=== PATIENT | female | born 1955 | race Caucasian/White ===

== ENCOUNTER → 2018-08-22 | Outpatient (REF) | payer MEDICARE, OTHER ==
[2018-08-24 14:13] LABS: HPV HYBRID CAPTURE II Negative (Negative)
== END ==
LOC: M SFHCWAGY 10:43
DX: Z12.4 Encounter for screening for malignant neoplasm of cervix (principal)

== ENCOUNTER → 2018-08-22 | Outpatient (CLI) | payer MEDICARE, BC | LOC: M WHC 10:32 | DX: Z12.31 Encounter for screening mammogram for malignant neoplasm of breast (principal); Z78.0 Asymptomatic menopausal state; R92.1 Mammographic calcification found on diagnostic imaging of breast; Z92.89 Personal history of other medical treatment; Z80.3 Family history of malignant neoplasm of breast; Z80.41 Family history of malignant neoplasm of ovary; Z12.4 Encounter for screening for malignant neoplasm of cervix | CPT/HCPCS: G0123 ==

== ENCOUNTER 2019-02-27 11:33 | Day surgery (SDC) | payer MEDICARE, BC, OTHER ==
[~2019-02-27] VITALS: Ht 165.1 cm; Wt 63.0 kg
[~2019-02-27 11:33] MED LIST: NS 1,000 ML IV SCH; RABE1TAB; REGL10TA6 PO; TOPI100T9
[2019-02-27] MEDS ORDERED: LIDOCAINE 2% INJ 100 MG/5 ML SDV (FOR ANES.) As Ordered ONE (11:52)
[2019-02-27] MEDS ORDERED: PROPOFOL 200 MG/20 ML VIAL As Ordered ONE (12:56)
--- NOTE | 2019-02-27 13:24 | ROOR ---
Patient Name: Prudence Horton Procedure Date: 02/27/2019 12:53 PM Date of : 1955 Age: 64 Room: [facility] Gender: Female Note Status: Finalized Procedure: Colonoscopy Indications: Screening for colorectal malignant neoplasm Providers: Kory Luther Jr, MD Referring MD: CHRIS HERNÁNDEZ Requesting Provider: Medicines: Propofol per Anesthesia Complications: No immediate complications. Procedure: Pre-Anesthesia Assessment: - Prior to the procedure, a History and Physical was performed, and patient medications and allergies were reviewed. The patient is competent. The risks and benefits of the procedure and the sedation options and risks were discussed with the patient. All questions were answered and informed consent was obtained. Patient identification and proposed procedure were verified by the physician and the nurse in the pre-procedure area and in the procedure room. Mental Status Examination: alert and oriented. Airway Examination: normal oropharyngeal airway and neck mobility. Respiratory Examination: clear to auscultation. CV Examination: normal. ASA Grade Assessment: II - A patient with mild systemic disease. After reviewing the risks and benefits, the patient was deemed in satisfactory condition to undergo the procedure. The anesthesia plan was to use moderate sedation / analgesia (conscious sedation). Immediately prior to administration of medications, the patient was re-assessed for adequacy to receive sedatives. The heart rate, respiratory rate, oxygen saturations, blood pressure, adequacy of pulmonary ventilation, and response to care were monitored throughout the procedure. The physical status of the patient was re-assessed after the procedure. The Colonoscope was introduced through the anus and advanced to the cecum, identified by appendiceal orifice and ileocecal valve. The colonoscopy was performed without difficulty. The patient tolerated the procedure well. Findings: The rectum, sigmoid colon, descending colon, transverse colon, ascending colon, cecum, appendiceal orifice and ileocecal valve appeared normal. The sigmoid colon, descending colon, transverse colon and ascending colon were moderately redundant. Impression: - The rectum, sigmoid colon, descending colon, transverse colon, ascending colon, cecum, appendiceal orifice and ileocecal valve are normal. - Redundant colon. - No specimens collected. Recommendation: - Discharge patient to home (ambulatory). - Repeat colonoscopy in 10 years for screening purposes. Kory Luther MD Kory Luther Jr, MD 02/27/2019 1:24:01 PM Electronically signed by Kory Luther Jr, MD Number of Addenda: 0 Note Initiated On: 02/27/2019 12:53 PM Estimated Blood Loss: Estimated blood loss: none.
[2019-02-27] MEDS ORDERED: ePHEDrine SULFATE 25 MG/5 ML(5MG/ML) SYRINGE As Ordered ONE (13:29)
[2019-02-27 13:45] VITALS: BP 114/56
== END 2019-02-27 14:04 | disposition home or self-care (01) ==
LOC: M OPP 11:33
PROVIDERS: ATTEND Surgery
DX: Z12.11 Encounter for screening for malignant neoplasm of colon (principal); Q43.8 Other specified congenital malformations of intestine

== ENCOUNTER → 2019-09-26 | Outpatient (CLI) | payer MEDICARE, BC ==
[~2019-09-26] MED LIST changes: -NS 1,000 ML IV SCH
--- NOTE | 2019-09-26 09:50 | REPMRS ---
Patient History The patient states she has not had a clinical breast exam in over a year. Family history of breast cancer at age 55 in sister, ovarian cancer at age 61 in sister. Benign cyst aspiration of the right breast, 1997. No Hormone Replacement Therapy Digital Woman Screen Mammo: September 26, 2019 - Exam #: [id number] Bilateral CC and MLO view(s) were taken. Technologist: Rosette Chacon, Technologist Prior study comparison: August 22, 2018, bilateral digital woman screen mammo performed at [facility]. August 13, 2015, digital woman screen mammo performed at [facility]. July 28, 2013, digital woman screen mammo performed at [facility]. FINDINGS: The breast tissue is extremely dense which could obscure a lesion on mammography. There is an extremely dense symmetrical pattern of residual fibroglandular tissue. There has been no change in the appearance of the mammogram from the previous studies. There is no interval development of dominant mass, archetectural distortion, or grouped microcalcifications suggestive of malignancy. 3-D tomosynthesis shows no additional findings. Assessment: BI-RADS/ACR category 1 mammogram. Negative Mammogram. Recommendation Routine screening mammogram of both breasts in 1 year (for women over age 40). This patient's Lifetime Breast Cancer RIsk is estimated at 17.6 %. This mammogram was interpreted with the aid of an FDA-approved computer-aided dectection system. Electronically Signed By: Rg Zuleta MD 09/26/19 0922
== END ==
LOC: M WHC 09:07
PROVIDERS: ATTEND Nurse Practitioner Women's Health
DX: Z12.31 Encounter for screening mammogram for malignant neoplasm of breast (principal); Z85.3 Personal history of malignant neoplasm of breast; Z80.41 Family history of malignant neoplasm of ovary

== ENCOUNTER → 2020-09-15 | Outpatient (REF) | payer MEDICARE, OTHER | LOC: M LAB REF 15:16 | PROVIDERS: ATTEND Physician Assistant | DX: Z20.828 Contact with and (suspected) exposure to other viral communicable diseases (principal) ==

== ENCOUNTER → 2021-01-17 | Outpatient (CLI) | payer MEDICARE, BC ==
[~2021-01-17] MED LIST changes: -RABE1TAB; +RABE1TAB4
--- NOTE | 2021-01-17 11:48 | REPMRS ---
Patient History The patient states she has not had a clinical breast exam in over a year. Family history of breast cancer at age 55 in sister, ovarian cancer at age 61 in sister. Benign cyst aspiration of the right breast, 1997. No Hormone Replacement Therapy Patient states no breast complaints. Patient has signed the MRS history sheet. Digital Woman Screen Mammo: January 17, 2021 - Exam #: [id number] Bilateral CC and MLO view(s) were taken. Technologist: Ruth Fernández, Technologist Prior study comparison: September 26, 2019, bilateral digital woman screen mammo performed at [facility]. August 22, 2018, bilateral digital woman screen mammo performed at [facility]. FINDINGS: The breast tissue is heterogeneously dense. This may lower the sensitivity of mammography. Screening. Digital screening (2D) mammography was performed bilaterally in the CC and MLO projections. Additionally, breast tomosynthesis (3D mammography) was performed bilaterally in the CC and MLO projections. Todays exam was compared to the prior exams(s). By history, the patient has no complaints of a palpable breast abnormality or other significant breast complaints. The breasts are unchanged in size and shape. Once again, dense heterogenous fibroglandular elements are seen bilaterally in a stable appearing pattern but to such a degree that the sensitivity of the mammogram in detecting cancer is decreased.There are no zakia-soft tissue densities or spiculated masses. There is no internal architectural distortion. Once again, stable benign appearing calcifications are seen.There are no suspicious zakia-calcific clusters. Skin thickening or nipple retraction is not present. IMPRESSION: BI-RADS Category 2- Benign Findings(s). There is no evidence of malignant alteration of the breasts. Followup examination recommended in one year. The Volpara volumetric breast density category is C, the breasts are heterogenously dense which may obscure small masses. This mammogram was read with the assistance of [employer],an FDA approved computer aided detection system for mammography. The lifetime Tyrer-Cuzick score is 16.6 % Negative x-ray reports should not delay surgical consultation if a dominant or clinically suspicious mass is present. Not all breast cancers can be identified by mammography. Therefore, we recommend that you continue to perform regular breast self-examination and physical examination and then promptly contact your physician of any concerns or changes. Adenosis and dense breasts may obscure an underlying neoplasm. Assessment: BI-RADS/ACR category 2 mammogram. Benign Findings. Recommendation Routine screening mammogram of both breasts in 1 year. Electronically Signed By: Ryan Hernandez DO 01/17/21 1142
== END ==
LOC: M WHC 11:02
PROVIDERS: ATTEND Nurse Practitioner Women's Health
DX: Z12.31 Encounter for screening mammogram for malignant neoplasm of breast (principal); Z80.3 Family history of malignant neoplasm of breast

== ENCOUNTER → 2021-02-22 | Outpatient (CLI) | payer MEDICARE, BC ==
--- NOTE | 2021-02-22 12:06 | REP ---
INDICATION: PAIN COMPARISON: None. TECHNIQUE: AP, lateral, and swimmers views. FINDINGS: Alignment and kyphosis is maintained. Vertebral bodies intact. No acute fracture / compression injury or subluxation. Mild age-related changes include subtle marginal spurring and minimal endplate sclerosis. IMPRESSION: Minimal age-related changes. <Electronically signed by Enzo Barnes > 02/22/21 [id number]
== END ==
LOC: M WUC 11:22
PROVIDERS: ATTEND Physician Assistant
DX: M54.6 Pain in thoracic spine (principal)

== ENCOUNTER → 2022-11-08 | Outpatient (REF) | payer MEDICARE, OTHER | LOC: M PLALAB 14:59 | PROVIDERS: ATTEND Advanced Practice Midwife | DX: Z12.4 Encounter for screening for malignant neoplasm of cervix (principal); N95.2 Postmenopausal atrophic vaginitis | CPT/HCPCS: 87624; G0123 ==

== ENCOUNTER → 2022-11-08 | Outpatient (CLI) | payer MEDICARE, BC, OTHER | LOC: M WHC 13:17 | PROVIDERS: ATTEND Advanced Practice Midwife | DX: Z12.31 Encounter for screening mammogram for malignant neoplasm of breast (principal); Z80.3 Family history of malignant neoplasm of breast; Z80.41 Family history of malignant neoplasm of ovary ==

== ENCOUNTER 2023-12-15 19:34 | Inpatient (IN) | payer MEDICARE, BC ==
[~2023-12-15] VITALS: Ht 165.1 cm; Wt 68.0 kg
[2023-12-15] MEDS ORDERED: METO10TA3 PO (20:26)
[2023-12-15] MEDS ORDERED: FAMO40TA3 PO (20:26)
[2023-12-15] MEDS ORDERED: PANT40TA29 PO (20:26)
[2023-12-15] MEDS ORDERED: BENZ200C70 PO (20:26)
[2023-12-15 21:29] LABS: HEMATOCRIT 30.1 % (36.0-47.0); HEMOGLOBIN 10.2 g/dl (12.0-15.5); MEAN CORPUSCULAR HEMOGLOBIN 29.5 pg (27.0-33.0); MEAN CORPUSCULAR HGB CONC 33.9 g/dl (32.0-36.5); RED BLOOD COUNT 3.46 10^6/uL (4.00-5.40); WHITE BLOOD COUNT 6.7 10^3/uL (4.0-10.0)
[2023-12-15] MEDS: ACETAMINOPHEN 500 MG TAB PO ONE (21:31)
[2023-12-15] MEDS: NS 2,060 ML in IV 1 EA IV ONE (21:31)
[2023-12-15 21:46] LABS: ERYTHROCYTE SEDIMENTATION RATE 23 mm/hr (0-30)
[2023-12-15 22:03] LABS: PLATELET COUNT, AUTOMATED 89 10^3/uL (150-450)
[2023-12-15 22:26] LABS: ATYPICAL LYMPH 9 % (0-5); LYMPHOCYTES 30 % (16-44); MONOCYTES 2 % (0-5); NEUTROPHILS 59 % (28-66); PLATELET ESTIMATE DECREASED (NORMAL)
[2023-12-15 22:35] LABS: LIPASE 39 U/L (12-53)
[2023-12-15 22:37] LABS: CPK CREATINE PHOSPHOKINASE 264 U/L (34-145)
[2023-12-15 22:46] LABS: ALBUMIN 2.9 G/DL (3.2-5.2); ALKALINE PHOSPHATASE 414 U/L (46-116); ALT/SGPT 279 U/L (7.0-40); AST/SGOT 262 U/L (<34); BILIRUBIN,DIRECT 0.7 MG/DL (<0.4); BILIRUBIN,TOTAL 1.1 MG/DL (0.3-1.2); BLOOD UREA NITROGEN 16 MG/DL (9-23); CALCIUM LEVEL 8.1 MG/DL (8.3-10.6); CARBON DIOXIDE LEVEL 28 MMOL/L (20-31); CHLORIDE LEVEL 102 MMOL/L (98-107); CK-MB VALUE MASS < 1.0 NG/ML (<3.6); CREATININE FOR GFR 0.65 MG/DL (0.55-1.30); GLOMERULAR FILTRATION RATE > 60.0 (>39); GLUCOSE, FASTING 130 MG/DL (74-106); MB/CK RELATIVE INDEX 0.37 (< OR =4); SODIUM LEVEL 135 MMOL/L (136-145); TOTAL PROTEIN 5.7 G/DL (5.7-8.2)
[2023-12-15] MEDS: ALBUTEROL SULFATE 2.5MG/0.5ML INH NEB SOLN NEB ONE (22:55)
[2023-12-15] MEDS: POTASSIUM CHLORIDE 10% LIQ 20MEQ/15ML UDC PO ONE (23:01)
[2023-12-15 23:22] LABS: MONO REFLEX EBV COMP NEGATIVE (NEGATIVE)
[2023-12-15 23:31] LABS: CK-MB VALUE MASS < 1.0 NG/ML (<3.6)
[2023-12-15] MEDS ORDERED: ISOVUE-370 76% 100ML VIAL As Ordered ONE (23:59)
[2023-12-16 00:03] LABS: CPK CREATINE PHOSPHOKINASE 251 U/L (34-145); MB/CK RELATIVE INDEX 0.39 (< OR =4)
[2023-12-16] MEDS: CEFEPIME HCL 2 GM in D5W MINI-BAG PLUS 50 ML IV ONE (01:54)
[2023-12-16 02:09] LABS: HEPATITIS C VIRUS ABY INDEX < 0.02 INDEX (<0.8)
[2023-12-16 02:10] LABS: HEPATITIS B CORE ANTIBODY IGM NEGATIVE (NEGATIVE)
[2023-12-16] MEDS ORDERED: THERTAB52 PO (03:21)
[2023-12-16] MEDS ORDERED: VITA100093 PO (03:21)
[2023-12-16] MEDS ORDERED: EQL50TAB2 PO (03:21)
[2023-12-16] MEDS ORDERED: HOME MED LIST COMPLETE! XX SCH (03:25)
[2023-12-16] MEDS: DOXYCYCLINE HYCLATE 100 MG in D5W MINI-BAG PLUS 100 ML IV SCH (04:05)
[2023-12-16 05:04] VITALS: BP 117/58; TEMP 97.9; O2SAT 94
[2023-12-16 06:33] LABS: HEMATOCRIT 29.3 % (36.0-47.0); HEMOGLOBIN 9.7 g/dl (12.0-15.5); MEAN CORPUSCULAR HEMOGLOBIN 29.5 pg (27.0-33.0); MEAN CORPUSCULAR HGB CONC 33.1 g/dl (32.0-36.5); MEAN CORPUSCULAR VOLUME 89.1 fl (80.0-96.0); PLATELET COUNT, AUTOMATED 101 10^3/uL (150-450); RED BLOOD COUNT 3.29 10^6/uL (4.00-5.40); WHITE BLOOD COUNT 6.5 10^3/uL (4.0-10.0)
[2023-12-16 06:55] LABS: ATYPICAL LYMPH 5 % (0-5); LYMPHOCYTES 42 % (16-44); MONOCYTES 2 % (0-5); NEUTROPHILS 47 % (28-66)
[2023-12-16 07:02] LABS: PLATELET ESTIMATE DECREASED (NORMAL)
[2023-12-16 07:03] LABS: ALBUMIN 2.5 G/DL (3.2-5.2); ALKALINE PHOSPHATASE 374 U/L (46-116); ALT/SGPT 269 U/L (7.0-40); AST/SGOT 235 U/L (<34); BILIRUBIN,TOTAL 0.9 MG/DL (0.3-1.2); BLOOD UREA NITROGEN 12 MG/DL (9-23); CALCIUM LEVEL 7.6 MG/DL (8.3-10.6); CARBON DIOXIDE LEVEL 27 MMOL/L (20-31); CHLORIDE LEVEL 111 MMOL/L (98-107); CREATININE FOR GFR 0.69 MG/DL (0.55-1.30); GLOMERULAR FILTRATION RATE > 60.0 (>39); GLUCOSE, FASTING 111 MG/DL (74-106); PLATELET CLUMPS SMALL AMT; POTASSIUM SERUM 3.2 MMOL/L (3.5-5.1); SODIUM LEVEL 142 MMOL/L (136-145); TOTAL PROTEIN 5.2 G/DL (5.7-8.2)
[2023-12-16] MEDS ORDERED: BENZONATATE 100MG CAPSULE PO PRN (09:25)
[2023-12-16] MEDS: POTASSIUM CHLORIDE 10MEQ SR TABLET PO ONE (09:43)
[2023-12-16 09:52] LABS: FREE T4 0.98 NG/DL (0.89-1.76); THYROID STIMULATING HORMONE 0.412 uIU/ML (0.55-4.78)
[2023-12-16 10:31] VITALS: BP 118/64; TEMP 99.5; O2SAT 92
[2023-12-16 14:22] VITALS: BP 104/58; TEMP 98.4; O2SAT 93
[2023-12-16] MEDS: AZITHROMYCIN 250MG TABLET PO SCH (14:34)
[2023-12-16] MEDS: ATOVAQUONE SUSP 750MG/5ML 210 ML BTL PO SCH (14:35)
[2023-12-16 18:08] VITALS: BP 104/59; TEMP 97.9; O2SAT 94
[2023-12-16] MEDS: FAMOTIDINE 20 MG TAB PO SCH (20:37)
[2023-12-16] MEDS: ACETAMINOPHEN TAB 650MG DOSE (2X325MG) PO PRN (20:38)
[2023-12-16 21:52] VITALS: BP 103/57; TEMP 98.1; O2SAT 92
[2023-12-17 01:48] VITALS: BP 104/58; TEMP 97.9; O2SAT 93
[2023-12-17 05:44] VITALS: BP 116/70; TEMP 97.7; O2SAT 92
[2023-12-17 07:47] LABS: BASO % 0.3 % (0.0-1.0); EOS # 0.1 10^3/uL (0.0-0.5); EOS % 0.7 % (0.0-3.0); HEMATOCRIT 28.3 % (36.0-47.0); HEMOGLOBIN 9.2 g/dl (12.0-15.5); LYMPH # 3.4 10^3/uL (1.5-5.0); LYMPH % 36.7 % (24.0-44.0); MEAN CORPUSCULAR HEMOGLOBIN 29.1 pg (27.0-33.0); MEAN CORPUSCULAR HGB CONC 32.5 g/dl (32.0-36.5); MEAN CORPUSCULAR VOLUME 89.6 fl (80.0-96.0); MONO # 0.6 10^3/uL (0.0-0.8); NEUTROPHILS % 54.8 % (36.0-66.0); PLATELET COUNT, AUTOMATED 169 10^3/uL (150-450); RED BLOOD COUNT 3.16 10^6/uL (4.00-5.40); WHITE BLOOD COUNT 9.1 10^3/uL (4.0-10.0)
[2023-12-17 08:17] LABS: BLOOD UREA NITROGEN 15 MG/DL (9-23); CALCIUM LEVEL 7.8 MG/DL (8.3-10.6); CARBON DIOXIDE LEVEL 26 MMOL/L (20-31); CHLORIDE LEVEL 108 MMOL/L (98-107); CREATININE FOR GFR 0.62 MG/DL (0.55-1.30); GLOMERULAR FILTRATION RATE > 60.0 (>39); GLUCOSE, FASTING 79 MG/DL (74-106); POTASSIUM SERUM 3.4 MMOL/L (3.5-5.1); SODIUM LEVEL 141 MMOL/L (136-145)
[2023-12-17 08:18] LABS: ALBUMIN 2.3 G/DL (3.2-5.2); BILIRUBIN,DIRECT 0.5 MG/DL (<0.4); BILIRUBIN,TOTAL 0.9 MG/DL (0.3-1.2); TOTAL PROTEIN 5.2 G/DL (5.7-8.2)
[2023-12-17] MEDS: PANTOPRAZOLE 40MG TAB (PROTONIX) PO SCH (08:58)
[2023-12-17 14:00] VITALS: BP 115/61; TEMP 97.7; O2SAT 94
[2023-12-17] MEDS: DOXYCYCLINE HYCLATE 100MG TABLET PO SCH (17:02)
[2023-12-17 21:45] VITALS: BP 117/63; TEMP 97.7; O2SAT 91
[2023-12-18 01:54] VITALS: BP 127/71; TEMP 97.7; O2SAT 90
[2023-12-18 05:28] VITALS: BP 125/68; TEMP 97.9; O2SAT 92
[2023-12-18 07:33] LABS: BASO % 0.3 % (0.0-1.0); EOS # 0.2 10^3/uL (0.0-0.5); EOS % 2.5 % (0.0-3.0); HEMATOCRIT 27.8 % (36.0-47.0); HEMOGLOBIN 9.5 g/dl (12.0-15.5); LYMPH # 3.7 10^3/uL (1.5-5.0); LYMPH % 50.8 % (24.0-44.0); MEAN CORPUSCULAR HEMOGLOBIN 30.1 pg (27.0-33.0); MEAN CORPUSCULAR HGB CONC 34.2 g/dl (32.0-36.5); MONO # 0.7 10^3/uL (0.0-0.8); MONO % 8.9 % (2.0-8.0); NEUTROPHILS # 2.7 10^3/uL (1.5-8.5); NEUTROPHILS % 36.5 % (36.0-66.0); PLATELET COUNT, AUTOMATED 265 10^3/uL (150-450); RED BLOOD COUNT 3.16 10^6/uL (4.00-5.40); WHITE BLOOD COUNT 7.3 10^3/uL (4.0-10.0)
[2023-12-18 07:55] LABS: BLOOD UREA NITROGEN 11 MG/DL (9-23); CALCIUM LEVEL 7.8 MG/DL (8.3-10.6); CARBON DIOXIDE LEVEL 28 MMOL/L (20-31); CHLORIDE LEVEL 106 MMOL/L (98-107); CREATININE FOR GFR 0.54 MG/DL (0.55-1.30); GLOMERULAR FILTRATION RATE > 60.0 (>39); GLUCOSE, FASTING 95 MG/DL (74-106); POTASSIUM SERUM 3.3 MMOL/L (3.5-5.1); SODIUM LEVEL 141 MMOL/L (136-145)
[2023-12-18] MEDS ORDERED: DOXY100C3 PO (08:20)
[2023-12-18] MEDS ORDERED: POTA-151 PO (08:20)
[2023-12-18 09:00] VITALS: BP 124/69; TEMP 97.7; O2SAT 92
[2023-12-18] MEDS: POTASSIUM CHLORIDE 10MEQ SR TABLET PO ONE (11:10)
[2023-12-18 12:00] VITALS: BP 124/69; TEMP 97.3; O2SAT 94
[2023-12-18 14:09] LABS: EBV AB TO NUCLEAR ANTIGEN 23.1 U/mL (0.0-17.9); EBV VIRAL CAPSID AG IgM <36.0 U/mL (0.0-35.9)
[2023-12-20 09:08] LABS: CMV QUANT DNA PCR (PLASMA) Negative (Negative); EBV PCR QUAL WHOLE BLD Negative (Negative)
== END 2023-12-18 14:45 | disposition home or self-care (01) | DRG 866 ==
LOC: M ED 19:34 → M ED INP 12-16 02:38 → ENRESERVTM 12-16 04:24 → ENRESERVDT 12-16 04:24 → M MS5PR 12-16 05:03
PROVIDERS: ADMIT Internal Medicine; ATTEND Internal Medicine
DX: A93.8 Other specified arthropod-borne viral fevers (principal); D64.9 Anemia, unspecified; K21.9 Gastro-esophageal reflux disease without esophagitis; D69.6 Thrombocytopenia, unspecified; Z79.899 Other long term (current) drug therapy; E87.6 Hypokalemia; R91.8 Other nonspecific abnormal finding of lung field; E04.1 Nontoxic single thyroid nodule

== ENCOUNTER → 2023-12-19 | Outpatient (CLI) | payer MEDICARE, BC ==
[~2023-12-19] MED LIST changes: +BENZ200C70 PO; +DOXY100C3 PO; +EQL50TAB2 PO; +FAMO40TA3 PO; +METO10TA3 PO; +PANT40TA29 PO; +POTA-151 PO; +THERTAB52 PO; +VITA100093 PO
== END ==
LOC: M WHC 10:27
PROVIDERS: ATTEND Advanced Practice Midwife
DX: Z12.31 Encounter for screening mammogram for malignant neoplasm of breast (principal); R92.333 Mammographic heterogeneous density, bilateral breasts

== ENCOUNTER → 2024-02-04 | Outpatient (REF) | payer MEDICARE, BC | LOC: M LAB REF 15:14 | PROVIDERS: ATTEND Internal Medicine Endocrinology, Diabetes & Metabolism | DX: E04.2 Nontoxic multinodular goiter (principal) ==

== ENCOUNTER 2024-06-18 19:58 | Emergency (ER) | payer MEDICARE, BC ==
[~2024-06-18] VITALS: Ht 165.1 cm; Wt 67.6 kg
[2024-06-19 01:22] VITALS: BP 131/69; TEMP 98.8; O2SAT 95
== END 2024-06-19 03:03 | disposition left against medical advice (07) ==
LOC: M ED 19:58
DX: Z53.21 Procedure and treatment not carried out due to patient leaving prior to being seen by health care provider (principal)

== ENCOUNTER → 2024-07-08 | Outpatient (CLI) | payer MEDICARE, BC | LOC: M PLAIMG 10:45 | PROVIDERS: ATTEND Internal Medicine Critical Care Medicine | DX: J98.11 Atelectasis (principal); E04.1 Nontoxic single thyroid nodule ==

== ENCOUNTER → 2024-08-26 | Outpatient (CLI) | payer MEDICARE, BC | LOC: M WUC 12:14 | PROVIDERS: ATTEND Physician Assistant | DX: M54.6 Pain in thoracic spine (principal); M47.814 Spondylosis without myelopathy or radiculopathy, thoracic region; M41.9 Scoliosis, unspecified ==

== ENCOUNTER → 2025-08-12 | Outpatient (CLI) | payer MEDICARE, BC ==
[~2025-08-12] MED LIST changes: -EQL50TAB2 PO; -RABE1TAB4; +RABE1TAB5; +TOPI-257; -TOPI100T9; +VITA1TAB82 PO
== END ==
LOC: M PLAIMG 10:27
PROVIDERS: ATTEND Internal Medicine Critical Care Medicine
DX: R91.8 Other nonspecific abnormal finding of lung field (principal)